=== PATIENT | male | born 1945 | race Caucasian/White ===

== ENCOUNTER 2022-08-03 02:38 | Outpatient (CLI) | payer BC, MEDICARE, SELFPAY ==
--- NOTE | 2022-08-03 07:30 | DI.MRI_ITS ---
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 TECHNIQUE: Multiplanar multisequence MRI of the brain and internal auditory canals was performed. CONTRAST MATERIAL: IV Contrast: 20 mL of Magnevist contrast administered. COMPARISON: No exams were available for comparison FINDINGS: VENTRICLES AND EXTRA AXIAL SPACES: Normal in size and morphology for the patient's age. HEMORRHAGE: None. CEREBRAL PARENCHYMA: Mild atrophy. Mild white matter changes of small vessel disease. No focus of r estricted diffusion to suggest acute infarct. No space-occupying lesion identified. MIDLINE SHIFT: None. BRAINSTEM/CEREBELLUM: Normal. CALVARIUM: Normal. ENHANCEMENT: No suspicious enhancement identified within the brain. VISUALIZED PARANASAL SINUSES: Small mucous retention cyst or polyp anterior left maxillary sinus. Mi ld mucosal thickening floor right maxillary sinus. MASTOIDS: Clear. ORBITS: Unremarkable. IAC/CP ANGLE: Thickening and abnormal enhancement in the left internal auditory canal, proximally 7 b y 5 millimeters. Findings suspicious for acoustic neuroma. The right internal auditory canal is wi thin normal limits. The cerebellar pontine angles are unremarkable. Remain visualized portions of th e cranial nerves appear within normal limits. OTHER FINDINGS: None. 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 DATA REPOSITORY:
[2022-08-03 10:15] LABS: Estimated GFR 78.49 (mL/min/1.73m2)
[2022-08-03] MEDS: Gadoterate meglumine 20 ML VIAL IVP (10:19)
[2022-08-03] MEDS: Normal Saline Flush 10 ML SYR IJ (10:20)
== END 2022-08-03 02:58 ==
PROVIDERS: PCP Nurse Practitioner Family; Visit Provider Otolaryngology
DX: G51.0 Bell's palsy (principal); H90.3 Sensorineural hearing loss, bilateral
CPT/HCPCS: 70553; 82565